=== PATIENT | female | born 1950 | race Caucasian/White ===

== ENCOUNTER → 2016-09-29 13:45 | Outpatient (CLI) | payer MEDICARE, BC ==
[~2016-09-29 13:45] MED LIST: OMEPRAZOLE20 M1 PO; PROBIOTIC1 EAC1 PO; PROZAC20 MG PO; XALATAN 0.0052.5 ML EACH EYE; ZOLOFT25 MG PO; ZYRTEC10 MG PO; [UNRECOGNIZED DRUG - OTHER]
[2016-09-29 13:57] LABS: BASOPHILS 0.3 % (0.0-2.0); EOSINOPHILS 2.6 % (0-7); HEMATOCRIT 40.9 % (36.0-48.0); HEMOGLOBIN 13.3 g/dL (12-16); IMMATURE GRANULOCYTES 0.3 % (0-5); LYMPHOCYTES 30.4 % (15-50); MCH 29.9 pg (26.0-34.0); MCHC 32.5 g/dL (31.0-37.0); MCV 91.9 fL (80.0-100.0); MONOCYTES 8.7 % (2-11); NEUTROPHILS 57.7 % (40-80); RBC 4.45 10x6/uL (4.00-5.40); RDW 13.3 % (11.5-14.5); WBC 6.9 10x3/uL (4.8-10.8)
[2016-09-29 13:58] LABS: PLATELET COUNT 242 10x3/uL (130-400)
[2016-09-30 08:21] LABS: IMMUNOGLOBULIN A 64 mg/dL (87-352)
[2016-09-30 09:19] LABS: IMMUNOGLOBULIN G 2078 mg/dL (700-1600)
[2016-09-30 10:18] LABS: IMMUNOGLOBULIN E 17 IU/mL (0-100); IMMUNOGLOBULIN M 12 mg/dL (26-217)
[2016-10-05 10:24] VITALS: BMI 25.4
== END | disposition home or self-care (01) ==
LOC: D.LABREF 13:45
PROVIDERS: Internal Medicine Pulmonary Disease
DX: R06.00 Dyspnea, unspecified (principal); J44.9 Chronic obstructive pulmonary disease, unspecified

== ENCOUNTER 2016-10-05 09:17 | Outpatient (CLI) | payer MEDICARE, BC ==
[~2016-10-05] VITALS: Ht 152.4 cm; Wt 59.1 kg
[2016-10-05] MEDS ORDERED: ZYRTEC10 MG PO (10:16)
[2016-10-05] MEDS ORDERED: PROBIOTIC1 EAC1 PO (10:16)
[2016-10-05] MEDS ORDERED: OMEPRAZOLE20 M1 PO (10:16)
[2016-10-05] MEDS ORDERED: ZOLOFT25 MG PO (10:16)
[2016-10-05] MEDS ORDERED: [UNRECOGNIZED DRUG - OTHER] (10:17)
[2016-10-05 10:20] LABS: BASOPHILS 0.5 % (0.0-2.0); EOSINOPHILS 1.9 % (0-7); HEMATOCRIT 40.8 % (36.0-48.0); HEMOGLOBIN 13.2 g/dL (12-16); IMMATURE GRANULOCYTES 0.3 % (0-5); LYMPHOCYTES 23.5 % (15-50); MCH 29.4 pg (26.0-34.0); MCHC 32.4 g/dL (31.0-37.0); MCV 90.9 fL (80.0-100.0); MONOCYTES 7.4 % (2-11); NEUTROPHILS 66.4 % (40-80); PLATELET COUNT 214 10x3/uL (130-400); RBC 4.49 10x6/uL (4.00-5.40); RDW 13.3 % (11.5-14.5); WBC 6.2 10x3/uL (4.8-10.8)
[2016-10-05 10:24] VITALS: BP 129/60; Ht 152.4 cm; Wt 59.1 kg
[2016-10-05] MEDS ORDERED: PROZAC20 MG PO (10:31)
[2016-10-05] MEDS ORDERED: XALATAN 0.0052.5 ML EACH EYE (10:32)
[2016-10-05 10:48] LABS: APTT 26.9 SECONDS (22.8-39.4); INR 0.99 (0.85-1.17); PROTIME 12.9 SECONDS (11.6-15.0)
--- NOTE | 2016-10-05 14:04 | NUR ---
ICE GIVEN,HOB UP 30 DEGREES
--- NOTE | 2016-10-05 14:16 | NUR ---
ICE CHIPS GIVEN
--- NOTE | 2016-10-05 14:43 | NUR ---
NAUSEA PASS EATING FULL LIG DIET, BP 80/49 O2 SAT ON RA 94%
--- NOTE | 2016-10-05 15:38 | NUR ---
1500 BP AT 79/46 O2 MOMITOR CHANGE TO GREAT UP TO 97 ON 30 L OXYMIZER O2 REMOVE O2 AT 96% DR BRYANT CALLED NEW ORDER, IV RPLACE AND BOLUS 500CC , CXRAY DONE 1520 DR RAYA HERE [id number] TO PATIENT AND FAMILY,OK TO DC HOME
--- NOTE | 2016-10-05 17:31 | NUR ---
1715 PT'S DAUGHTER HAS ARRIVED. DC INSTS. REVIEWED VOICED UNDERSTANDING RELEASED IN [facility].
[2016-10-06 14:22] LABS: FUNGUS STAIN Final report (())
[2016-10-06 15:23] LABS: AFB SPECIMEN PROCESSING Concentration (())
--- NOTE | 2016-10-08 12:39 | PRO ---
PATIENT:OSEAS HYDE MEDICAL RECORD: [id number] : 46 LOCATION:[facility] ADMISSION DATE: 10/05/16 PROCEDURE PERFORMED BY: HELADIO BRYANT MD DATE OF PROCEDURE: 10/05/2016 PROCEDURE: Fiberoptic bronchoscopy. INDICATION: Ms. Hyde is a 66-year-old female, who has recurrent pneumonia for the almost 1-1/2 year. Fiberoptic bronchoscopy was carried down to inspect the airway as well as to get the cultures. MONITORING: EKG, pulse, and blood pressure were monitored throughout the procedure. MEDICATIONS: Versed 5 mg IV in divided doses, atropine 0.6 mg IM, Fentanyl 100 mcg IV in divided doses. PROCEDURE IN DETAIL: After getting conscious sedation, fiberoptic bronchoscope was easily passed through the mouth. The epiglottis was normal. 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 They are moving equally on phonation. The main trachea was normal. The bashir was sharp. The subsegment to the left upper lobe and left lower lobe lingula within normal range. No endobronchial lesion was seen. The left main bronchus subsegment to the left lower lobe within normal range. The right main bronchus was normal. The bronchus intermedius within normal range. The subsegment to the right upper lobe within normal range. No endobronchial lesion was seen. There are bronchitic changes of the right middle lobe. The subsegment to the right lower lobe within normal range. Specimen washing was obtained from the right middle lobe for routine culture and sensitivity, AFB and fungus and cytology. The cultures were also obtained from the left upper lobe, right upper lobe. Overall, the patient tolerated the procedure very well. TRANSINT:[id number] Voice Confirmation ID: [id number] DOCUMENT ID: [id number] HELADIO BRYANT MD at 1239 CC: [id number] DICTATION DATE: 10/05/16 1148 BOX PRINTING MACHINE OPERATOR: 10/05/16 1218 DEP CLI 10/05/[address] [address]
[2016-10-21 11:17] LABS: ACID FAST CULTURE Positive (())
[2016-10-25 12:12] LABS: ACID FAST SMEAR Negative (()); M TUBERCULOSIS Negative (())
[2016-11-02 13:15] LABS: FUNGUS MYCOLOGY CULTURE Final report (())
[2016-11-10 14:21] LABS: AMIKACIN 32.0 ug/mL (())
== END 2016-10-05 17:15 | disposition home or self-care (01) ==
LOC: D.OPS 09:17
PROVIDERS: Internal Medicine Pulmonary Disease
DX: J18.8 Other pneumonia, unspecified organism (principal)

== ENCOUNTER → 2016-10-25 12:40 | Outpatient (CLI) | payer MEDICARE, BC ==
[2016-10-05 10:24] VITALS: BMI 25.4
== END | disposition home or self-care (01) ==
LOC: D.LABREF 12:40
DX: R89.9 Unspecified abnormal finding in specimens from other organs, systems and tissues (principal)

== ENCOUNTER → 2016-10-28 10:03 | Outpatient (CLI) | payer MEDICARE, BC ==
[2016-10-05 10:24] VITALS: BMI 25.4
== END | disposition home or self-care (01) ==
LOC: D.MRI 10:03
DX: R43.9 Unspecified disturbances of smell and taste (principal)

== ENCOUNTER → 2016-11-03 14:37 | Outpatient (CLI) | payer MEDICARE, BC ==
[2016-10-05 10:24] VITALS: BMI 25.4
[2016-11-03 21:15] LABS: ALBUMIN 3.8 g/dL (3.4-5.0); ALKALINE PHOSPHATASE 102 U/L (46-116); ALT (SGPT) 20 U/L (10-68); BILIRUBIN - TOTAL 0.33 mg/dL (0.2-1.3); CALC OSMOLALITY 288 mosm/kg (275-300); CALCIUM 9.4 mg/dL (8.5-10.1); CARBON DIOXIDE 30.1 mmol/L (21.0-32.0); CHLORIDE - SERUM 105 mmol/L (98-107); CREATININE - SERUM 0.7 mg/dL (0.6-1.3); GLUCOSE 110 mg/dL (74-106); POTASSIUM - SERUM 4.1 mmol/L (3.5-5.1); PROTEIN - SERUM 7.9 g/dL (6.4-8.2); SODIUM 144 mmol/L (136-145); UREA NITROGEN 15 mg/dL (7-18); eGFR NON AFRICAN AMERICAN 88 mL/min (90-120)
== END | disposition home or self-care (01) ==
LOC: D.LABREF 14:37
PROVIDERS: Student in an Organized Health Care Education/Training Program
DX: A31.0 Pulmonary mycobacterial infection (principal)

== ENCOUNTER → 2016-12-01 16:48 | Outpatient (CLI) | payer MEDICARE, BC ==
[2016-10-05 10:24] VITALS: BMI 25.4
[2016-12-01 20:47] LABS: BASOPHILS 0.6 % (0.0-2.0); EOSINOPHILS 2.2 % (0-7); HEMATOCRIT 39.2 % (36.0-48.0); HEMOGLOBIN 12.9 g/dL (12-16); IMMATURE GRANULOCYTES 0.2 % (0-5); LYMPHOCYTES 30.7 % (15-50); MCH 30.3 pg (26.0-34.0); MCHC 32.9 g/dL (31.0-37.0); MEAN PLATELET VOLUME 13.2 fL (7.4-10.4); MONOCYTES 8.6 % (2-11); NEUTROPHILS 57.7 % (40-80); PLATELET COUNT 191 10x3/uL (130-400); RBC 4.26 10x6/uL (4.00-5.40); RDW 13.4 % (11.5-14.5); WBC 5.4 10x3/uL (4.8-10.8)
[2016-12-01 21:07] LABS: ALBUMIN 3.7 g/dL (3.4-5.0); ALKALINE PHOSPHATASE 88 U/L (46-116); ALT (SGPT) 20 U/L (10-68); BILIRUBIN - TOTAL 0.44 mg/dL (0.2-1.3); CALC OSMOLALITY 285 mosm/kg (275-300); CALCIUM 8.7 mg/dL (8.5-10.1); CARBON DIOXIDE 27.6 mmol/L (21.0-32.0); CHLORIDE - SERUM 106 mmol/L (98-107); CREATININE - SERUM 0.8 mg/dL (0.6-1.3); GLUCOSE 94 mg/dL (74-106); POTASSIUM - SERUM 3.5 mmol/L (3.5-5.1); PROTEIN - SERUM 7.6 g/dL (6.4-8.2); SODIUM 143 mmol/L (136-145); UREA NITROGEN 15 mg/dL (7-18); eGFR NON AFRICAN AMERICAN 75 mL/min (90-120)
== END | disposition home or self-care (01) ==
LOC: D.LABREF 16:48
PROVIDERS: Student in an Organized Health Care Education/Training Program
DX: A31.0 Pulmonary mycobacterial infection (principal); Z51.81 Encounter for therapeutic drug level monitoring; Z79.2 Long term (current) use of antibiotics

== ENCOUNTER → 2017-01-12 18:19 | Outpatient (CLI) | payer MEDICARE, BC ==
[2016-10-05 10:24] VITALS: BMI 25.4
[2017-01-12 20:02] LABS: BASOPHILS 0.4 % (0-2); EOSINOPHILS 2.5 % (0-7); HEMATOCRIT 40.3 % (36.0-48.0); HEMOGLOBIN 13.3 g/dL (12-16); IMMATURE GRANULOCYTES 0.2 % (0-5); LYMPHOCYTES 33.1 % (15-50); MCH 30.6 pg (26.0-34.0); MCV 92.6 fL (80.0-100.0); MEAN PLATELET VOLUME 13.2 fL (7.4-10.4); MONOCYTES 8.6 % (2-11); NEUTROPHILS 55.2 % (40-80); PLATELET COUNT 189 10x3/uL (130-400); RBC 4.35 10x6/uL (4.00-5.40); RDW 13.2 % (11.5-14.5); WBC 5.3 10x3/uL (4.8-10.8)
[2017-01-12 20:17] LABS: ALBUMIN 3.7 g/dL (3.4-5.0); ALKALINE PHOSPHATASE 106 U/L (46-116); ALT (SGPT) 22 U/L (10-68); BILIRUBIN - TOTAL 0.52 mg/dL (0.2-1.3); CALC OSMOLALITY 277 mosm/kg (275-300); CALCIUM 9.1 mg/dL (8.5-10.1); CARBON DIOXIDE 29.1 mmol/L (21.0-32.0); CHLORIDE - SERUM 103 mmol/L (98-107); CREATININE - SERUM 0.8 mg/dL (0.6-1.3); GLUCOSE 71 mg/dL (74-106); POTASSIUM - SERUM 3.9 mmol/L (3.5-5.1); PROTEIN - SERUM 8.1 g/dL (6.4-8.2); SODIUM 140 mmol/L (136-145); UREA NITROGEN 15 mg/dL (7-18); eGFR NON AFRICAN AMERICAN 75 mL/min (90-120)
== END | disposition home or self-care (01) ==
LOC: D.LABREF 18:19
PROVIDERS: Student in an Organized Health Care Education/Training Program
DX: A31.0 Pulmonary mycobacterial infection (principal); Z79.899 Other long term (current) drug therapy

== ENCOUNTER → 2017-02-22 11:23 | Outpatient (CLI) | payer MEDICARE, BC ==
[2016-10-05 10:24] VITALS: BMI 25.4
[2017-02-22 14:47] LABS: BASOPHILS 0.2 % (0-2); EOSINOPHILS 2.3 % (0-7); HEMATOCRIT 40.1 % (36.0-48.0); HEMOGLOBIN 13.2 g/dL (12-16); MCH 30.8 pg (26.0-34.0); MCHC 32.9 g/dL (31.0-37.0); MCV 93.5 fL (80.0-100.0); MEAN PLATELET VOLUME 13.2 fL (7.4-10.4); MONOCYTES 9.3 % (2-11); NEUTROPHILS 54.2 % (40-80); PLATELET COUNT 173 10x3/uL (130-400); RBC 4.29 10x6/uL (4.00-5.40); RDW 13.2 % (11.5-14.5); WBC 4.3 10x3/uL (4.8-10.8)
[2017-02-22 15:15] LABS: ALBUMIN 3.6 g/dL (3.4-5.0); ALKALINE PHOSPHATASE 97 U/L (46-116); ALT (SGPT) 19 U/L (10-68); BILIRUBIN - TOTAL 0.38 mg/dL (0.2-1.3); CALC OSMOLALITY 278 mosm/kg (275-300); CALCIUM 8.8 mg/dL (8.5-10.1); CARBON DIOXIDE 25.8 mmol/L (21.0-32.0); CHLORIDE - SERUM 103 mmol/L (98-107); CREATININE - SERUM 0.7 mg/dL (0.6-1.3); GLUCOSE 73 mg/dL (74-106); POTASSIUM - SERUM 4.4 mmol/L (3.5-5.1); PROTEIN - SERUM 7.6 g/dL (6.4-8.2); SODIUM 139 mmol/L (136-145); UREA NITROGEN 18 mg/dL (7-18); eGFR NON AFRICAN AMERICAN 88 mL/min (90-120)
== END | disposition home or self-care (01) ==
LOC: D.LABREF 11:23
PROVIDERS: Student in an Organized Health Care Education/Training Program
DX: Z51.81 Encounter for therapeutic drug level monitoring (principal); Z79.2 Long term (current) use of antibiotics; A31.0 Pulmonary mycobacterial infection

== ENCOUNTER → 2017-03-14 10:14 | Outpatient (CLI) | payer MEDICARE, BC ==
[2016-10-05 10:24] VITALS: BMI 25.4
== END | disposition home or self-care (01) ==
LOC: D.CT 10:14
DX: A31.0 Pulmonary mycobacterial infection (principal)

== ENCOUNTER 2017-04-14 11:51 | Day surgery (SDC) | payer MEDICARE, BC ==
[~2017-04-14] VITALS: Ht 152.4 cm; Wt 57.7 kg
[2017-04-14] MEDS ORDERED: MYAMBUTOL400 MG PO (12:41)
[2017-04-14] MEDS ORDERED: RIFADIN300 MG PO (12:41)
[2017-04-14] MEDS ORDERED: ZITHROMAX TRI-500 MG PO (12:42)
[2017-04-14 12:51] VITALS: BP 101/66; Ht 152.4 cm; Wt 57.7 kg
[2017-04-14 14:38] LABS: HEMOGLOBIN 13.6 g/dL (12-16); MCH 31.1 pg (26.0-34.0); MCHC 33.2 g/dL (31.0-37.0); MCV 93.8 fL (80.0-100.0); MEAN PLATELET VOLUME 12.6 fL (7.4-10.4); RBC 4.37 10x6/uL (4.00-5.40); RDW 12.8 % (11.5-14.5); WBC 6.2 10x3/uL (4.8-10.8)
--- NOTE | 2017-04-15 08:48 | OP ---
PATIENT NAME: OSEAS MCCARTNEY MEDICAL RECORD: [id number] :46 LOCATION:[facility] ADMISSION DATE: SURGEON: KWAN STINSON DO DATE OF OPERATION: 04/14/2017 PROCEDURE: Colonoscopy. INDICATIONS FOR PROCEDURE: Screening for colorectal cancer. SCOPE: Olympus video pediatric colonoscope. MEDICATIONS: Propofol 290 mg IV per anesthesia. WITHDRAWAL TIME: 9 minutes. ESTIMATED BLOOD LOSS: None. COMPLICATIONS: None. FINDINGS: Informed consent was given. The patient was made comfortable with the above medication. After reaching an adequate level of sedation by slow IV push, the patient was placed on her left side. A digital rectal examination was performed and was normal. The endoscope was then advanced under direct visualization through the rectum to the cecum with visualization of the appendiceal orifice and ileocecal valve. The scope was slowly withdrawn and mucosa was carefully examined. The prep quality was excellent. There were no abnormalities visualized on this examination. No polyps were seen. Retroflexion was performed in the rectum with normal appearance. The scope was withdrawn from the patient. The patient tolerated the procedure well and there were no complications. IMPRESSION: Normal colonoscopy. PLAN AND RECOMMENDATIONS: 1. Discharge home when recovery parameters are met. 2. Continue current diet and current medications. 3. Recall colonoscopy in 7 years for continued colorectal cancer screening. TRANSINT:[id number] Voice Confirmation ID: [id number] DOCUMENT ID: [id number] KWAN STINSON DO at 0848 CC: [id number] DICTATION DATE: 04/14/17 1421 PROJECT/PRODUCTION MANAGER IMAGING: 04/14/17 1733 [facility] 04/14/17 [place] [id number]
== END 2017-04-14 15:15 | disposition home or self-care (01) ==
LOC: D.OPS 11:51
PROVIDERS: Anesthesiology
DX: Z12.11 Encounter for screening for malignant neoplasm of colon (principal); J44.9 Chronic obstructive pulmonary disease, unspecified; K21.9 Gastro-esophageal reflux disease without esophagitis; Z01.812 Encounter for preprocedural laboratory examination

== ENCOUNTER → 2017-04-19 12:42 | Outpatient (CLI) | payer MEDICARE, BC ==
[2017-04-14 12:51] VITALS: BMI 24.8
[~2017-04-19 12:42] MED LIST changes: +MYAMBUTOL400 MG PO; +RIFADIN300 MG PO; +ZITHROMAX TRI-500 MG PO
== END | disposition home or self-care (01) ==
LOC: D.LABREF 12:42
DX: A31.0 Pulmonary mycobacterial infection (principal); Z79.2 Long term (current) use of antibiotics

== ENCOUNTER → 2017-04-19 15:21 | Outpatient (CLI) | payer MEDICARE, BC ==
[2017-04-14 12:51] VITALS: BMI 24.8
[2017-04-19 16:59] LABS: ALBUMIN 3.3 g/dL (3.4-5.0); ALKALINE PHOSPHATASE 101 U/L (46-116); ALT (SGPT) 19 U/L (10-68); BILIRUBIN - TOTAL 0.24 mg/dL (0.2-1.3); CALC OSMOLALITY 280 mosm/kg (275-300); CALCIUM 8.6 mg/dL (8.5-10.1); CARBON DIOXIDE 28.7 mmol/L (21.0-32.0); CHLORIDE - SERUM 101 mmol/L (98-107); CREATININE - SERUM 0.7 mg/dL (0.6-1.3); GLUCOSE 77 mg/dL (74-106); POTASSIUM - SERUM 4.3 mmol/L (3.5-5.1); PROTEIN - SERUM 7.6 g/dL (6.4-8.2); SODIUM 140 mmol/L (136-145); UREA NITROGEN 21 mg/dL (7-18); eGFR NON AFRICAN AMERICAN 88 mL/min (90-120)
== END | disposition home or self-care (01) ==
LOC: D.LABREF 15:21
PROVIDERS: Student in an Organized Health Care Education/Training Program
DX: Z79.2 Long term (current) use of antibiotics (principal); A31.0 Pulmonary mycobacterial infection

== ENCOUNTER → 2017-06-21 13:05 | Outpatient (CLI) | payer MEDICARE, BC ==
[2017-04-14 12:51] VITALS: BMI 24.8
[2017-06-21 18:13] LABS: BASOPHILS 0.5 % (0-2); EOSINOPHILS 3.7 % (0-7); HEMATOCRIT 41.1 % (36.0-48.0); HEMOGLOBIN 13.4 g/dL (12-16); IMMATURE GRANULOCYTES 0.2 % (0-5); LYMPHOCYTES 31.5 % (15-50); MCH 30.9 pg (26.0-34.0); MCHC 32.6 g/dL (31.0-37.0); MCV 94.7 fL (80.0-100.0); NEUTROPHILS 55.1 % (40-80); PLATELET COUNT 192 10x3/uL (130-400); RBC 4.34 10x6/uL (4.00-5.40); RDW 12.8 % (11.5-14.5); WBC 4.4 10x3/uL (4.8-10.8)
[2017-06-21 18:35] LABS: ALBUMIN 3.5 g/dL (3.4-5.0); ALKALINE PHOSPHATASE 94 U/L (46-116); ALT (SGPT) 19 U/L (10-68); CALC OSMOLALITY 284 mosm/kg (275-300); CALCIUM 8.8 mg/dL (8.5-10.1); CARBON DIOXIDE 30.4 mmol/L (21.0-32.0); CHLORIDE - SERUM 103 mmol/L (98-107); CREATININE - SERUM 0.8 mg/dL (0.6-1.3); GLUCOSE 68 mg/dL (74-106); POTASSIUM - SERUM 3.9 mmol/L (3.5-5.1); PROTEIN - SERUM 7.8 g/dL (6.4-8.2); SODIUM 143 mmol/L (136-145); UREA NITROGEN 17 mg/dL (7-18); eGFR NON AFRICAN AMERICAN 75 mL/min (90-120)
== END | disposition home or self-care (01) ==
LOC: D.LABREF 13:05
PROVIDERS: Student in an Organized Health Care Education/Training Program
DX: A31.0 Pulmonary mycobacterial infection (principal); Z51.81 Encounter for therapeutic drug level monitoring; Z79.2 Long term (current) use of antibiotics

== ENCOUNTER → 2017-08-02 10:46 | Outpatient (CLI) | payer MEDICARE, BC ==
[2017-04-14 12:51] VITALS: BMI 24.8
[2017-08-02 16:03] LABS: BASOPHILS 0.4 % (0-2); EOSINOPHILS 2.2 % (0-7); HEMATOCRIT 39.6 % (36.0-48.0); HEMOGLOBIN 13.2 g/dL (12-16); IMMATURE GRANULOCYTES 0.2 % (0-5); LYMPHOCYTES 27.7 % (15-50); MCH 30.9 pg (26.0-34.0); MCHC 33.3 g/dL (31.0-37.0); MCV 92.7 fL (80.0-100.0); MEAN PLATELET VOLUME 12.5 fL (7.4-10.4); MONOCYTES 6.4 % (2-11); NEUTROPHILS 63.1 % (40-80); PLATELET COUNT 192 10x3/uL (130-400); RBC 4.27 10x6/uL (4.00-5.40); RDW 12.7 % (11.5-14.5)
[2017-08-02 16:18] LABS: ALBUMIN 3.2 g/dL (3.4-5.0); ALKALINE PHOSPHATASE 83 U/L (46-116); ALT (SGPT) 18 U/L (10-68); CALC OSMOLALITY 277 mosm/kg (275-300); CALCIUM 8.6 mg/dL (8.5-10.1); CARBON DIOXIDE 28.5 mmol/L (21.0-32.0); CHLORIDE - SERUM 103 mmol/L (98-107); CREATININE - SERUM 0.7 mg/dL (0.6-1.3); GLUCOSE 86 mg/dL (74-106); POTASSIUM - SERUM 4.2 mmol/L (3.5-5.1); PROTEIN - SERUM 7.4 g/dL (6.4-8.2); SODIUM 139 mmol/L (136-145); UREA NITROGEN 15 mg/dL (7-18); eGFR NON AFRICAN AMERICAN 88 mL/min (90-120)
== END | disposition home or self-care (01) ==
LOC: D.LABREF 10:46
PROVIDERS: Student in an Organized Health Care Education/Training Program
DX: A31.0 Pulmonary mycobacterial infection (principal); Z51.81 Encounter for therapeutic drug level monitoring; Z79.2 Long term (current) use of antibiotics

== ENCOUNTER → 2017-09-14 09:37 | Outpatient (CLI) | payer MEDICARE, BC ==
[2017-04-14 12:51] VITALS: BMI 24.8
== END | disposition home or self-care (01) ==
LOC: D.CT 09:37
DX: A31.0 Pulmonary mycobacterial infection (principal)

== ENCOUNTER → 2017-09-27 13:13 | Outpatient (CLI) | payer MEDICARE, BC ==
[2017-04-14 12:51] VITALS: BMI 24.8
[2017-09-27 16:52] LABS: BASOPHILS 0.4 % (0-2); EOSINOPHILS 2.3 % (0-7); HEMATOCRIT 40.2 % (36.0-48.0); HEMOGLOBIN 13.5 g/dL (12-16); LYMPHOCYTES 33.6 % (15-50); MCH 30.9 pg (26.0-34.0); MCHC 33.6 g/dL (31.0-37.0); MEAN PLATELET VOLUME 12.6 fL (7.4-10.4); NEUTROPHILS 53.7 % (40-80); PLATELET COUNT 202 10x3/uL (130-400); RBC 4.37 10x6/uL (4.00-5.40); RDW 12.9 % (11.5-14.5); WBC 5.3 10x3/uL (4.8-10.8)
[2017-09-27 17:22] LABS: ALBUMIN 3.5 g/dL (3.4-5.0); ANION GAP 12.6 mmol/L (8-16); BILIRUBIN - TOTAL 0.25 mg/dL (0.2-1.3); CALCIUM 8.8 mg/dL (8.5-10.1); CARBON DIOXIDE 29.1 mmol/L (21.0-32.0); CREATININE - SERUM 0.9 mg/dL (0.6-1.3); POTASSIUM - SERUM 4.7 mmol/L (3.5-5.1); PROTEIN - SERUM 7.7 g/dL (6.4-8.2)
== END | disposition home or self-care (01) ==
LOC: D.LABREF 13:13
PROVIDERS: Student in an Organized Health Care Education/Training Program
DX: A31.0 Pulmonary mycobacterial infection (principal); Z51.81 Encounter for therapeutic drug level monitoring; Z79.2 Long term (current) use of antibiotics

== ENCOUNTER → 2017-10-11 16:04 | Outpatient (CLI) | payer MEDICARE, BC ==
[2017-04-14 12:51] VITALS: BMI 24.8
== END | disposition home or self-care (01) ==
LOC: D.MAMMO 13:30
DX: Z12.31 Encounter for screening mammogram for malignant neoplasm of breast (principal)

== ENCOUNTER → 2017-11-22 13:43 | Outpatient (CLI) | payer MEDICARE, BC ==
[2017-04-14 12:51] VITALS: BMI 24.8
[2017-11-22 16:05] LABS: BASOPHILS 0.3 % (0-2); EOSINOPHILS 1.4 % (0-7); HEMATOCRIT 40.5 % (36.0-48.0); HEMOGLOBIN 13.3 g/dL (12-16); IMMATURE GRANULOCYTES 0.3 % (0-5); MCH 30.4 pg (26.0-34.0); MCHC 32.8 g/dL (31.0-37.0); MCV 92.7 fL (80.0-100.0); MEAN PLATELET VOLUME 12.9 fL (7.4-10.4); MONOCYTES 5.4 % (2-11); NEUTROPHILS 69.6 % (40-80); PLATELET COUNT 197 10x3/uL (130-400); RBC 4.37 10x6/uL (4.00-5.40); RDW 13.2 % (11.5-14.5)
[2017-11-22 16:23] LABS: ALBUMIN 3.5 g/dL (3.4-5.0); ALKALINE PHOSPHATASE 95 U/L (46-116); ALT (SGPT) 16 U/L (10-68); BILIRUBIN - TOTAL 0.33 mg/dL (0.2-1.3); CALC OSMOLALITY 288 mosm/kg (275-300); CALCIUM 8.7 mg/dL (8.5-10.1); CARBON DIOXIDE 29.1 mmol/L (21.0-32.0); CHLORIDE - SERUM 105 mmol/L (98-107); CREATININE - SERUM 0.8 mg/dL (0.6-1.3); GLUCOSE 74 mg/dL (74-106); POTASSIUM - SERUM 3.9 mmol/L (3.5-5.1); PROTEIN - SERUM 7.9 g/dL (6.4-8.2); SODIUM 145 mmol/L (136-145); UREA NITROGEN 15 mg/dL (7-18); eGFR NON AFRICAN AMERICAN 75 mL/min (90-120)
== END | disposition home or self-care (01) ==
LOC: D.LABREF 13:43
PROVIDERS: Student in an Organized Health Care Education/Training Program
DX: A31.0 Pulmonary mycobacterial infection (principal); Z51.81 Encounter for therapeutic drug level monitoring; Z79.2 Long term (current) use of antibiotics

== ENCOUNTER → 2018-01-24 12:47 | Outpatient (CLI) | payer MEDICARE, BC ==
[2017-04-14 12:51] VITALS: BMI 24.8
[2018-01-24 13:00] LABS: BASOPHILS 0.5 % (0-2); EOSINOPHILS 1.7 % (0-7); HEMATOCRIT 38.3 % (36.0-48.0); HEMOGLOBIN 12.9 g/dL (12-16); LYMPHOCYTES 33.3 % (15-50); MCH 30.8 pg (26.0-34.0); MCHC 33.7 g/dL (31.0-37.0); MCV 91.4 fL (80.0-100.0); MEAN PLATELET VOLUME 12.4 fL (7.4-10.4); MONOCYTES 9.9 % (2-11); NEUTROPHILS 54.6 % (40-80); PLATELET COUNT 169 10x3/uL (130-400); RBC 4.19 10x6/uL (4.00-5.40); RDW 13.1 % (11.5-14.5); WBC 4.2 10x3/uL (4.8-10.8)
[2018-01-24 13:11] LABS: ALBUMIN 3.5 g/dL (3.4-5.0); ANION GAP 15.2 mmol/L (8-16); BILIRUBIN - TOTAL 0.29 mg/dL (0.2-1.3); CALCIUM 8.9 mg/dL (8.5-10.1); CARBON DIOXIDE 28.1 mmol/L (21.0-32.0); CREATININE - SERUM 0.9 mg/dL (0.6-1.3); POTASSIUM - SERUM 4.3 mmol/L (3.5-5.1); PROTEIN - SERUM 7.7 g/dL (6.4-8.2)
== END | disposition home or self-care (01) ==
LOC: D.LABREF 12:47
PROVIDERS: Student in an Organized Health Care Education/Training Program
DX: A31.0 Pulmonary mycobacterial infection (principal); Z51.81 Encounter for therapeutic drug level monitoring; Z79.2 Long term (current) use of antibiotics

== ENCOUNTER → 2018-03-28 09:55 | Outpatient (CLI) | payer MEDICARE, BC ==
[2017-04-14 12:51] VITALS: BMI 24.8
== END | disposition home or self-care (01) ==
LOC: D.CT 09:55
DX: A31.0 Pulmonary mycobacterial infection (principal)

== ENCOUNTER → 2018-04-11 14:30 | Outpatient (CLI) | payer MEDICARE, BC ==
[2017-04-14 12:51] VITALS: BMI 24.8
[2018-04-11 14:59] LABS: BASOPHILS 0.2 % (0-2); EOSINOPHILS 1.8 % (0-7); HEMATOCRIT 38.9 % (36.0-48.0); HEMOGLOBIN 13.1 g/dL (12-16); IMMATURE GRANULOCYTES 0.2 % (0-5); LYMPHOCYTES 24.6 % (15-50); MCHC 33.7 g/dL (31.0-37.0); MEAN PLATELET VOLUME 12.3 fL (7.4-10.4); MONOCYTES 9.4 % (2-11); NEUTROPHILS 63.8 % (40-80); PLATELET COUNT 189 10x3/uL (130-400); RBC 4.23 10x6/uL (4.00-5.40); RDW 13.2 % (11.5-14.5)
[2018-04-11 15:20] LABS: ALBUMIN 3.2 g/dL (3.4-5.0); ALKALINE PHOSPHATASE 95 U/L (46-116); ALT (SGPT) 21 U/L (10-68); BILIRUBIN - TOTAL 0.27 mg/dL (0.2-1.3); CALC OSMOLALITY 282 mosm/kg (275-300); CALCIUM 8.5 mg/dL (8.5-10.1); CARBON DIOXIDE 29.9 mmol/L (21.0-32.0); CHLORIDE - SERUM 105 mmol/L (98-107); CREATININE - SERUM 0.7 mg/dL (0.6-1.3); GLUCOSE 87 mg/dL (74-106); POTASSIUM - SERUM 4.3 mmol/L (3.5-5.1); PROTEIN - SERUM 7.4 g/dL (6.4-8.2); SODIUM 142 mmol/L (136-145); UREA NITROGEN 16 mg/dL (7-18); eGFR NON AFRICAN AMERICAN 88 mL/min (90-120)
== END | disposition home or self-care (01) ==
LOC: D.LABREF 14:30
PROVIDERS: Student in an Organized Health Care Education/Training Program
DX: Z51.81 Encounter for therapeutic drug level monitoring (principal); Z79.2 Long term (current) use of antibiotics

== ENCOUNTER → 2018-06-06 13:30 | Outpatient (CLI) | payer MEDICARE, BC ==
[2017-04-14 12:51] VITALS: BMI 24.8
== END | disposition home or self-care (01) ==
LOC: D.RT 13:30
DX: A31.0 Pulmonary mycobacterial infection (principal); J44.9 Chronic obstructive pulmonary disease, unspecified

== ENCOUNTER → 2018-12-18 08:43 | Outpatient (CLI) | payer MEDICARE, BC ==
[2017-04-14 12:51] VITALS: BMI 24.8
== END | disposition home or self-care (01) ==
LOC: D.CT 08:43
PROVIDERS: ATTEND Internal Medicine Pulmonary Disease
DX: J18.9 Pneumonia, unspecified organism (principal)

== ENCOUNTER → 2018-12-28 13:55 | Outpatient (CLI) | payer MEDICARE, BC ==
[2017-04-14 12:51] VITALS: BMI 24.8
== END | disposition home or self-care (01) ==
LOC: D.RT 13:55
PROVIDERS: ATTEND Internal Medicine Pulmonary Disease
DX: J44.9 Chronic obstructive pulmonary disease, unspecified (principal)

== ENCOUNTER 2019-02-07 15:52 | Inpatient (IN) | payer MEDICARE, BC ==
[~2019-02-07] VITALS: Ht 152.4 cm; Wt 61.1 kg
[2019-02-07 14:57] LABS: HEMATOCRIT 39.7 % (36.0-48.0); HEMOGLOBIN 13.3 g/dL (12-16); MCH 30.2 pg (26.0-34.0); MCHC 33.5 g/dL (31.0-37.0); MCV 90.2 fL (80.0-100.0); MEAN PLATELET VOLUME 11.7 fL (7.4-10.4); RBC 4.4 10x6/uL (4.00-5.40); RDW 13.5 % (11.5-14.5); WBC 6.6 10x3/uL (4.8-10.8)
[2019-02-07 14:59] LABS: APPEARANCE CLEAR (CLEAR); BILIRUBIN NEGATIVE (NEGATIVE); COLOR YELLOW (YELLOW); GLUCOSE NEGATIVE (NEGATIVE); KETONE NEGATIVE (NEGATIVE); NITRITE NEGATIVE (NEGATIVE); PROTEIN NEGATIVE (NEGATIVE); UROBILINOGEN NORMAL (NORMAL)
[2019-02-07 15:16] LABS: APTT 25.5 SECONDS (22.8-39.4); INR 1.02 (0.85-1.17); PROTIME 12.9 SECONDS (11.6-15.0)
[2019-02-07 15:52] LABS: ALBUMIN 3.3 g/dL (3.4-5.0); ALKALINE PHOSPHATASE 102 U/L (46-116); ALT (SGPT) 22 U/L (10-68); BILIRUBIN - TOTAL 0.32 mg/dL (0.2-1.3); CALC OSMOLALITY 282 mosm/kg (275-300); CALCIUM 8.8 mg/dL (8.5-10.1); CHLORIDE - SERUM 104 mmol/L (98-107); CREATININE - SERUM 0.8 mg/dL (0.6-1.3); GLUCOSE 100 mg/dL (74-106); POTASSIUM - SERUM 3.3 mmol/L (3.5-5.1); SODIUM 141 mmol/L (136-145); UREA NITROGEN 17 mg/dL (7-18); eGFR NON AFRICAN AMERICAN 75 mL/min (90-120)
[~2019-02-07 15:52] MED LIST changes: +RANITIDINE HCL150 M1 PO
[2019-02-09] VITALS (19 sets, daily range): BP systolic 114–149; BP diastolic 45–74; Ht 152.4 cm; Wt 61.1 kg
--- NOTE | 2019-02-09 13:11 | NUR ---
PT ARRIVED TO ROOM APPROX 1230 ALERT AND ORIENTED O2 4L NC, R SUBCLAVIAN CVL DRESSING CDI WITH PLASMALYTE 100ML/HR DECREASED TO 30ML/HR, R POST CHEST DRESSING CDI WITH R CT TO 20CM SUCTION NO AIR LEAK, BLOODY DRAINAGE, EPIDURAL SITE CDI WITH CLINICAL APPEALS RN BUTTON WITHIN REACH, 7ML CONTINUOUS, 3.5ML CLINICAL APPEALS RN Q15MIN, L RADIAL A LINE ZEROED, WRIST PROTECTOR IN PLACE, GOOD WAVEFORM, CRITICORE CEDEÑO DRAINING YELLOW URINE, TEDS/SCDS IN PLACE, CALL LIGHT WITHIN REACH, DAUGHTER UPDATED BY DR LUNA AND SECURITY CODE SET UP, ALARMS SET AND PT DENIES ALL NEEDS AT THIS TIME, EDUCATED CUSTOMER SOLUTIONS TEAMMATE LIGHT USE, WILL CONTINUE TO MONITOR
--- NOTE | 2019-02-09 17:05 | NUR ---
PT REPOSITIONED HOURLY, INSTRUCTED ON HEAD RESIDENT USE AND INCENTIVE SPIROMETRY, DENIES PAIN, WILL CONTINUE TO MONITOR
--- NOTE | 2019-02-09 19:30 | NUR ---
REPORT REC'D AND CARE ASSUMED, REC'D PT RESTING EYES CLOSED ON 1 LITER NC, AWAKENS EASILY TO VERBAL STIMULI, ORIENTED X 4, RDLSCL DRSG CDI WITH PLASMALYTE @ 30CC/HR AND ZINACEF @ 11.4CC/HR, RIGHT UPPER BACK DRSG CDI, RIGHT LATERAL CT X 1 TO 20CM H2O SUCTION, NO AIR LEAK NOTED, DRSG CDI, SANGUINOUS DRAINAGE PRESENT, ABD SOFT, BS ABSENT, LEFT RADIAL KENNA WITH FLEXION BOARD IN PLACE, LEVELED AND ZEROED WITH RETURN OF APPROPRIATE WAVEFORM, CRITICORE CEDEÑO PATENT CLEAR YELLOW URINE, BILAT TEDS AND SCDS ON, PPP, EPIDURAL TAPED SECURELY TO BACK INFUSING @ 7CC/HR WITH 3.5CC Q15MIN BOLUS AVAILABLE, PT HOLDING BOLUS BUTTON, AIR OVERLAY MATTRESS IN USE, SR UP X 2, VISIBLE TO NURSES STATION.
--- NOTE | 2019-02-09 20:15 | NUR ---
FAMILY AT VISITING WITH PATIENT
--- NOTE | 2019-02-09 21:00 | NUR ---
EVENING EYE DROPS PLACED IN EACH EYE ORDERED, PT REPOSITIONED ONTO LEFT SIDE, COMPLAINS OF RIGHT SIDE DISCOMFORT WITH REPOSITIONING, ENCOURAGED PT TO USE EPIDURAL BUTTON NEEDED FOR BREAKTHROUGH PAIN, PT VERBALIZES UNDERSTANDING, LEMON SWAB PROVIDED TO MOISTEN MOUTH, VSS, PT DENIES FURTHER NEEDS.
--- NOTE | 2019-02-09 21:22 | NUR ---
DR. TORO ON UNIT, NO NEW ORDERS REC'D
--- NOTE | 2019-02-09 23:00 | NUR ---
REASSESSMENT COMPLETED, PT DOZING AT INTERVALS, PT REPOSITIONED IN BED FOR COMFORT, PT COMPLAINS OF INABILITY TO SLEEP, DENIES PAIN, RIGHT LATERAL CHEST TUBE DRAINING SANGUINOUS DRAINAGE, DRSG CDI, ORAL SWAB PROVIDED WITH MOUTH MOISTURIZER FOR COMPLAINTS OF MOUTH BEING DRY, PT DENIES FURTHER NEEDS, VSS, WILL CONTINUE TO MONITOR CLOSELY FOR CHANGES.
[2019-02-10] VITALS (24 sets, daily range): BP systolic 98–141; BP diastolic 44–94
--- NOTE | 2019-02-10 00:30 | NUR ---
PT REQUESTING SWAB TO MOISTEN MOUTH, LEMON GLYCERIN SWAB PROVIDED, PT REPOSITIONED UP IN BED FOR COMFORT, WILL MONITOR FOR CHANGES.
--- NOTE | 2019-02-10 01:30 | NUR ---
NO CHANGES IN STATUS AT THIS TIME
--- NOTE | 2019-02-10 03:15 | NUR ---
REASSESSMENT COMPLETED, STRONG PRODUCTIVE COUGH, O2 SAT 97%, PT UNABLE TO SLEEP, ASSISTED PT TO REPOSITION FOR COMFORT, EPIDURAL REMAINS TAPED SECURELY TO BACK, RIGHT LATERAL CT DRAINING SMALL AMOUNT SANGUINOUS DRAINAGE, SR UP X 2, PT REMAINS VISIBLE TO NURSES STATION.
--- NOTE | 2019-02-10 04:05 | NUR ---
RADIOLOGY AT BS FOR AM CXR, PT TOLERATED WELL
--- NOTE | 2019-02-10 04:45 | NUR ---
COMPLETE CHG BATH AND LINEN CHANGE PROVIDED, PT WASHED FACE AND BRUSHED HAIR, TEDS AND SCDS REMOVED FOR BREAK, PT REPOSITIONED UP IN BED FOR COMFORT, WARM BLANKET PROVIDED ON REQUEST, VSS, CALL LIGHT AND EPIDURAL BUTTON IN REACH.
--- NOTE | 2019-02-10 05:45 | NUR ---
AM LAB DRAWN FROM CV AND SENT TO LAB.
[2019-02-10 06:12] LABS: HEMOGLOBIN 11.2 g/dL (12-16); MCH 29.9 pg (26.0-34.0); MCHC 32.9 g/dL (31.0-37.0); MCV 90.7 fL (80.0-100.0); MEAN PLATELET VOLUME 11.6 fL (7.4-10.4); RBC 3.75 10x6/uL (4.00-5.40)
[2019-02-10 06:29] LABS: ALBUMIN 2.7 g/dL (3.4-5.0); ALKALINE PHOSPHATASE 68 U/L (46-116); ALT (SGPT) 20 U/L (10-68); CALC OSMOLALITY 283 mosm/kg (275-300); CALCIUM 8.2 mg/dL (8.5-10.1); CARBON DIOXIDE 29.1 mmol/L (21.0-32.0); CHLORIDE - SERUM 107 mmol/L (98-107); CREATININE - SERUM 0.8 mg/dL (0.6-1.3); GLUCOSE 130 mg/dL (74-106); POTASSIUM - SERUM 3.7 mmol/L (3.5-5.1); PROTEIN - SERUM 6.8 g/dL (6.4-8.2); SODIUM 142 mmol/L (136-145); UREA NITROGEN 11 mg/dL (7-18); eGFR NON AFRICAN AMERICAN 75 mL/min (90-120)
--- NOTE | 2019-02-10 07:00 | NUR ---
REC'D AWAKE/ALERT, VSS. DENIES ANY NEED AT THIS TIME.
--- NOTE | 2019-02-10 08:00 | NUR ---
ASSESSED. VISITOR @ BEDSIDE. INSTRUCTED IS Q1HR AND TCDB. COMPLIANT. DENIES PAIN. CL LIQU MEAL SRVED.
--- NOTE | 2019-02-10 10:26 | NUR ---
DR CORINNA HARMON REC'D.
--- NOTE | 2019-02-10 11:00 | NUR ---
DR WEINSTEIN REMOVES RT LATERAL CT. REASSESSED. DENIES PAIN OR OTHER NEED AT THIS TIME.
--- NOTE | 2019-02-10 11:30 | NUR ---
EPIDURAL REMOVED PER ANESTHESIA. LEFT RADIAL A-LINE REMOVED- DRSG APPLIED POST 5 MIN MANUAL PRESSURE HELD.
--- NOTE | 2019-02-10 12:15 | NUR ---
O2 SAT 88 ON R/A WHILE ASLEEP. APPLIED O2 2L/NC W/ SAT UP TO 98%.
--- NOTE | 2019-02-10 14:00 | NUR ---
CEDEÑO REMOVED THEN UP TO CHAIR.
--- NOTE | 2019-02-10 14:30 | NUR ---
REASSESSED. VSS. O2 TO 1L/NC.
--- NOTE | 2019-02-10 14:59 | NUR ---
TO XRAY VIA W/C.
--- NOTE | 2019-02-10 16:29 | NUR ---
FAMILY IN AND UPDATED. HAS BEEN COMPLIANT W/ C/DB & IS.
--- NOTE | 2019-02-10 16:47 | NUR ---
UP TO CHAIR FOR DINNER.
[2019-02-10 17:08] LABS: ACID FAST SMEAR Negative (()); AFB SPECIMEN PROCESSING Tissue Grinding (())
--- NOTE | 2019-02-10 17:50 | NUR ---
BACK TO BED AFTER MEAL. VSS. DENIES ANY NEED AT THIS TIME. RATES PAIN 1/10 WHENEVER SHE MOVES HER RIGHT SHOULDER D/T CVL.
--- NOTE | 2019-02-10 19:30 | NUR ---
REPORT REC'D AND CARE ASSUMED, REC'D PT RESTING IN BED ON O2 @ 1 LITER VIA NC, AWAKE, ALERT, AND ORIENTED X 4, RDLSCL DRSG CDI BOTH PORTS SALINE LOCKED, RIGHT POSTERIOR BACK DRSGS CDI, RIGHT LATERAL DRSG TO PREVIOUS CT INSERTION SITE CDI, PT MAEE, EPIDURAL SITE TO BACK CDI, BILAT TEDS AND SCDS INTACT, AIR OVERLAY MATTRESS IN USE, PT REQUESTING TO GET UP TO BATHROOM, ASSISTED X 1 TO RESTROOM, GAIT STEADY, PT VOIDED 200CC CLEAR YELLOW URINE, BACK TO BED AND REPOSITIONED UP FOR COMFORT, BED IN LOW POSITION, CALL LIGHT IN REACH, PT DENIES PAIN OR OTHER NEEDS.
--- NOTE | 2019-02-10 21:15 | NUR ---
EVENING MEDS GIVEN ORDERED, PT DENIES PAIN OR NEEDS, VSS.
--- NOTE | 2019-02-10 22:03 | NUR ---
NO VISITORS IN AT THIS TIME
--- NOTE | 2019-02-10 22:55 | NUR ---
REASSESSMENT COMPLETED AFTER BREATHING TX, PT PULLING 1000 ON IS COUGHING AND DEEP BREATHING DONE, PT REPOSITIONED SELF ONTO RIGHT SIDE, DENIES NEEDS, SR UP X 2, BED IN LOW POSITION, VISIBLE TO NURSES STATION.
[2019-02-11] VITALS (12 sets, daily range): BP systolic 95–143; BP diastolic 35–72
--- NOTE | 2019-02-11 01:00 | NUR ---
PT RESTING IN BED EYES CLOSED, RESP EVEN AND UNLABORED, VSS, O2 SAT 96%, BP STABLE.
--- NOTE | 2019-02-11 03:30 | NUR ---
PT ASSISTED UP TO BATHROOM, TEMP 100.0 ORALLY, PARTIAL LINEN CHANGE PROVIDED AND PT ASSISTED BACK TO BED, PT REPOSITIONED SELF UP IN BED WITH MINIMAL ASSISTANCE, OFFERED PT PAIN PILL, REFUSED AT THIS TIME, VSS, WILL MONITOR FOR CHANGES.
--- NOTE | 2019-02-11 04:30 | NUR ---
PT TAKEN TO RADIOLOGY FOR PA AND LATERAL, TOLERATED WELL, UPON RETURNING TO ROOM ASSISTED TO BATHROOM FOR BATH AND LINEN CHANGE, PT BATHED SELF INDEPENDENTLY, COMBED HAIR AND BRUSHED TEETH, ASSISTED PT TO RECLINER, COMPLETE LINEN CHANGE PROVIDED, CALL LIGHT AND WARM BLANKET PROVIDED.
--- NOTE | 2019-02-11 05:55 | NUR ---
AM LAB DRAWN FROM [facility] AND SENT TO LAB, PT RESTING QUIETLY IN RECLINER, VSS.
[2019-02-11 06:11] LABS: HEMATOCRIT 34.2 % (36.0-48.0); HEMOGLOBIN 11.2 g/dL (12-16); MCH 29.9 pg (26.0-34.0); MCHC 32.7 g/dL (31.0-37.0); MCV 91.4 fL (80.0-100.0); MEAN PLATELET VOLUME 11.7 fL (7.4-10.4); RBC 3.74 10x6/uL (4.00-5.40); RDW 13.8 % (11.5-14.5); WBC 8.4 10x3/uL (4.8-10.8)
[2019-02-11 06:20] LABS: ALBUMIN 2.8 g/dL (3.4-5.0); ALKALINE PHOSPHATASE 66 U/L (46-116); ALT (SGPT) 21 U/L (10-68); BILIRUBIN - TOTAL 0.55 mg/dL (0.2-1.3); CALC OSMOLALITY 277 mosm/kg (275-300); CALCIUM 8.2 mg/dL (8.5-10.1); CARBON DIOXIDE 28.8 mmol/L (21.0-32.0); CHLORIDE - SERUM 103 mmol/L (98-107); CREATININE - SERUM 0.8 mg/dL (0.6-1.3); GLUCOSE 111 mg/dL (74-106); POTASSIUM - SERUM 3.5 mmol/L (3.5-5.1); PROTEIN - SERUM 7.1 g/dL (6.4-8.2); SODIUM 139 mmol/L (136-145); UREA NITROGEN 9 mg/dL (7-18); eGFR NON AFRICAN AMERICAN 75 mL/min (90-120)
--- NOTE | 2019-02-11 07:15 | NUR ---
REC'D UP IN CHAIR- ASSISTED BACK TO BED W/ MIN ASSIST. ASSESSED. PAIN 10/08- DENIES ANY NEED AT THIS TIME.
--- NOTE | 2019-02-11 09:30 | NUR ---
WALKS 750 WITH STAND-BY ASSIST, TOLERATED WITHOUT ANY ADVERSE.
--- NOTE | 2019-02-11 10:30 | NUR ---
BACK TO BED. CONT TO DENY NEED FOR PAIN MED.
--- NOTE | 2019-02-11 12:00 | NUR ---
REASSESSED- NO CHANGES. ASSISTED UP TO CHAIR FOR MEAL.
--- NOTE | 2019-02-11 12:30 | NUR ---
WALKS 500 FT W/O ANY DIFFICULTY. BACK TO BED. VSS.
--- NOTE | 2019-02-11 13:30 | NUR ---
DR WEINSTEIN HERE- WILL DC HOME!
[2019-02-11] MEDS ORDERED: HYDROCODON-ACE1 EAC7 PO (13:33)
--- NOTE | 2019-02-11 14:35 | NUR ---
RT SC CVL REMOVED- TIP INTACT. DRSG APPLIED AFTER MANUAL PRESSURE HELD 5 MIN. NO BRUISING/BLEEDING OR S/S INFECTION. INSTRUCTED S/S TO REPORT IN PRESENCE OF DTR. VERBALIZES UNDERSTANDING. RT PRIOR CT SITE REDRESSED W/ GAUZE & TEGADERM.
--- NOTE | 2019-02-11 15:17 | MORECARE ---
CASE MANAGEMENT DISCHARGE SUMMARY PATIENT: OSEAS MCCARTNEY UNIT: [id number] ADM DATE: 02/09/19 AGE: 68 : 48 SEX: F ROOM/BED: [facility] AUTHOR: EMI BURTON PHYSICIAN: REFERRING PHYSICIAN: FARAZ LUNA MD DATE OF SERVICE: 02/11/19 Discharge Plan Patient Name: [facility]SEAS MCCARTNEY [facility] [facility] 1950 Planned Disposition: Home Anticipated Discharge Date: 02/11/19 Discharge Date: 02/11/2019 Expected LOS: 2 Initial Reviewer: [email or web address] Initial Review Date: 02/09/2019 Generated: 02/11/19 4:16 pm Comments DCP- Discharge Planning Updated by [email or web address]: Flavia Arredondo on 02/11/19 2:[address] CM REVIEWED CLINICAL NOTES THIS AM. PATIENT HAD WALKED 750 FEET . TOLERATED WELL. WENT TO RADIOLOGY FOR CXR 2 VIEWS. O2 SAT ON ROOM AIR 96%. AMBULATED 500 FEET EARLY PM. PLAN IS TO RETURN TO HOME. FAMILY AT THE BEDSIDE. CM VISITED. PATIENT DENIED ANY NEED. DISCHARGE IMM EXPLAINED AND SERVED. Patient Name: OSEAS MCCARTNEY Page [phone] at 1517 All edits/amendments must be made on the electronic document DICTATION DATE: 02/11/19 151 ACCESS NURSE: RAEANN 02/11/19 1516 RPT#: [id number] DC DATE:02/11/19 STATUS: DIS IN [facility] [address] [place] [address] END OF REPORT
[2019-02-12 10:10] LABS: FUNGUS STAIN Final report (())
--- NOTE | 2019-02-13 11:37 | OP ---
PATIENT NAME: OSEAS MCCARTNEY MEDICAL RECORD: [id number] :46 LOCATION:[facility] D.CV05 ADMISSION DATE:02/09/19 SURGEON: ACOSTA LUNA MD DATE OF OPERATION: 02/09/2019 SURGEON: Acosta Luna MD ANESTHESIA: General, Dr. Romero. OPERATION PERFORMED: 1. Video-assisted thoracoscopy. 2. Wedge resection of right middle lobe nodule. 3. Right middle lobe biopsy with cultures for aerobe, anaerobe, TB, and fungus as well as tissue cultures for TB and fungus. PREOPERATIVE DIAGNOSIS: Hypermetabolic pulmonary nodule in right middle lobe on PET scan. POSTOPERATIVE DIAGNOSIS: Granulomatous lung disease. INDICATION FOR OPERATION: New solitary pulmonary nodule right middle lobe, hypermetabolic. FINDINGS OF THE OPERATION: The patient has interstitial lung disease with multiple nodules throughout the upper, middle, and lower lobes. The larger middle lobe nodule was identified and resected. Frozen section demonstrated granulomatous disease with giant cells. A right middle lobe biopsy was taken for histology as well as cultures, aerobe, anaerobe, TB, and fungus. ESTIMATED BLOOD LOSS: Negligible. DESCRIPTION OF PROCEDURE: After informed consent, adequate preoperative medication evaluation, the patient was brought to the operating room, placed on the table in the supine position. After induction of general endotracheal anesthesia and application of appropriate monitoring devices, the patient underwent flexible fiberoptic bronchoscopy and placement of a double lumen tube. The patient was turned in a left lateral decubitus position, protecting the neurological structures and pressure points. The right chest was prepped and draped in sterile field, utilizing Betadine scrub, alcohol, and Betadine solution. A Betadine-impregnated drape was also used. A port was placed in the ninth interspace mid axillary line and the right hemithorax was examined. There was one adhesion from the right upper lobe to the chest wall. The lung was completely deflated and careful inspection identified the nodule in the middle lobe. An anterior and posterior ports were placed; posterior was in the auscultatory triangle, the anterior was in the submammary anterior axillary line. The nodule was identified and held forth on an Endo-LINDSEY which was used to resect this portion of the lung. This was sent to pathology for frozen section and the diagnosis of a granulomatous disease with giant cells was then made. There was no malignancy noted. The right middle lobe was then again biopsied anteriorly and inferiorly and cultures were taken for aerobe, anaerobe, TB, and fungus. The chest was then irrigated with copious amounts of sterile water. A #28 chest tube was placed anteriorly and superiorly. The chest was again irrigated. Instrument count and sponge count were correct times 2. The chest OPERATIVE REPORT [id number] PAGE,OSEAS RECINOS was closed in layers utilizing 2-0 Vicryl on the deep subcutaneous tissue, 5-0 subcuticular Monocryl on the skin. Sterile dressings were applied. The patient tolerated the procedure well and was transferred to the CV ICU in satisfactory condition. TRANSINT:[id number] Voice Confirmation ID: [id number] DOCUMENT ID: [id number] ACOSTA LUNA MD at 1137 CC: [id number] DICTATION DATE: 02/09/19 1223 MACHINE GRINDER: 02/09/19 1539 DIS IN 02/11/19 [place] [id number] [place] [address]
== END 2019-02-11 15:14 | disposition home or self-care (01) | DRG 164 ==
LOC: D.CVICU 02-09 06:43 → D.SDCHOLD 02-09 06:43 → D.CVICU 02-09 11:40
PROVIDERS: Thoracic Surgery (Cardiothoracic Vascular Surgery); ADMIT Internal Medicine Cardiovascular Disease; ATTEND Internal Medicine Cardiovascular Disease
PROC: 0BTD4ZZ Resection of Right Middle Lung Lobe, Percutaneous Endoscopic Approach (ICD-10-PCS; principal; 2019-02-09 09:30)
PROC: 0BBD3ZX Excision of Right Middle Lung Lobe, Percutaneous Approach, Diagnostic (ICD-10-PCS; 2019-02-09 09:30)
DX: R91.1 Solitary pulmonary nodule (principal); D80.2 Selective deficiency of immunoglobulin A [IgA]; J84.9 Interstitial pulmonary disease, unspecified; J47.9 Bronchiectasis, uncomplicated; Z87.891 Personal history of nicotine dependence; J18.8 Other pneumonia, unspecified organism; K21.9 Gastro-esophageal reflux disease without esophagitis

== ENCOUNTER → 2019-02-22 09:24 | Outpatient (CLI) | payer MEDICARE, BC ==
[2019-02-09 13:24] VITALS: BMI 25.2
[~2019-02-22 09:24] MED LIST changes: +HYDROCODON-ACE1 EAC7 PO
== END | disposition home or self-care (01) ==
LOC: D.RAD 09:24 → EDSTATUS 09:51
PROVIDERS: ATTEND Internal Medicine Cardiovascular Disease
DX: C34.90 Malignant neoplasm of unspecified part of unspecified bronchus or lung (principal)

== ENCOUNTER → 2019-05-30 09:08 | Outpatient (CLI) | payer MEDICARE, BC ==
[2019-02-09 13:24] VITALS: BMI 25.2
== END | disposition home or self-care (01) ==
LOC: D.CT 09:08
PROVIDERS: ATTEND Internal Medicine Pulmonary Disease
DX: R91.1 Solitary pulmonary nodule (principal)

== ENCOUNTER → 2019-09-03 08:46 | Outpatient (CLI) | payer MEDICARE, BC ==
[2019-02-09 13:24] VITALS: BMI 25.2
== END | disposition home or self-care (01) ==
LOC: D.RT 08:46
PROVIDERS: ATTEND Internal Medicine Pulmonary Disease
DX: J44.9 Chronic obstructive pulmonary disease, unspecified (principal); R91.1 Solitary pulmonary nodule

== ENCOUNTER → 2020-01-14 13:39 | Outpatient (CLI) | payer MEDICARE, BC ==
[2019-02-09 13:24] VITALS: BMI 25.2
== END | disposition home or self-care (01) ==
LOC: D.MAMMO 12-19 14:30
PROVIDERS: ATTEND Family Medicine
DX: Z12.31 Encounter for screening mammogram for malignant neoplasm of breast (principal)

== ENCOUNTER → 2021-01-15 11:24 | Outpatient (CLI) | payer MEDICARE, BC ==
[2019-02-09 13:24] VITALS: BMI 25.2
== END | disposition home or self-care (01) ==
LOC: D.LAB 11:24
PROVIDERS: ATTEND Internal Medicine Pulmonary Disease
DX: Z11.52 Encounter for screening for COVID-19 (principal)

== ENCOUNTER → 2021-01-20 12:05 | Outpatient (CLI) | payer MEDICARE, BC ==
[2019-02-09 13:24] VITALS: BMI 25.2
== END | disposition home or self-care (01) ==
LOC: D.RT 12:05
PROVIDERS: ATTEND Internal Medicine Pulmonary Disease
DX: R91.1 Solitary pulmonary nodule (principal); Z11.52 Encounter for screening for COVID-19